=== PATIENT | female | born 1985 | race Caucasian/White ===

== ENCOUNTER 2017-05-22 11:47 | Emergency (ER) | payer BC ==
[2017-05-22 12:03] VITALS: BP 162/99
--- NOTE | 2017-05-22 12:34 | UC ---
Headache HPI - HPI Summary HPI Summary: 32 yo female has been having intermittent Headaches (3x week) for years last hours usually left hemicranial sometimes associated with n/v worse STOVALL of her life was 01/25- see did not seek care about once a month she has episodes of forgetfulness this weekend for 15-20 seconds she forgot how to use a pipette last month she forgot how to shower for a few minutes she once forgot how to read music for a few seconds for 2 yrs she has had tremors and palpitations no wt change no recent illness has never had a CT of brain has no PMD - History Of Current Complaint Chief Complaint: UCGeneralIllness Stated Complaint: HEADACHES MEMORY LOSS Time Seen by Provider: 05/22/17 11:59 Hx Obtained From: Patient Hx Last Menstrual Period: 05/10/17 Onset/Duration: Gradual Onset, Lasting Hours Onset Of Symptoms: Resolved - has not had a STOVALL for about 3 days Initially Headache Was: Moderate Currently Pain Is: Current Pain Scale(0-10)= - 0 Pain Intensity: 0 Pain Scale Used: 0-10 Numeric Timing: Intermittent, Lasting:, Hours Character: Dull Location of Headache: Frontal - L, Temporal - L Aggravating Factor: Nothing Allevating Factors: Medication - OTC Associated Signs And Symptoms: Negative: Dizziness, Seizure, Nausea, Vomiting, Sinus Pressure, Fever, Neck Pain, Neck Stiffness, Decreased LOC, Visual Changes - Allergies/Home Medications Allergies/Adverse Reactions: Allergies Allergy/AdvReac Type Severity Reaction Status Date / Time Amoxicillin Allergy Rash Verified 05/22/17 11:58 Home Medications: Home Medications FLUoxetine* [Prozac*] 40 mg PO DAILY 05/22/17 [History Confirmed 05/22/17] Levonorgestrel (Iud) [Mirena IUD] 05/22/17 [History] Sertraline* [Zoloft*] 100 mg PO BEDTIME 05/22/17 [History Confirmed 05/22/17] buPROPion TAB* [Wellbutrin TAB*] 450 mg PO DAILY 05/22/17 [History Confirmed 07/28] lamoTRIgine TAB(*) [Lamictal TAB(*)] 200 mg PO BEDTIME 05/22/17 [History Confirmed 05/22/17] PMH/Surg Hx/FS Hx/Imm Hx Previously Healthy: Yes - Surgical History Surgical History: None - Family History Known Family History: Positive: Other - MOM ? Headaches - Social History Alcohol Use: Occasionally Substance Use Type: None Smoking Status (MU): Current Every Day Smoker Type: eCigteddyttsusannah Review of Systems Constitutional: Fatigue - chronic Skin: Negative Eyes: Negative ENT: Negative Respiratory: Negative Cardiovascular: Palpitations - none at present Gastrointestinal: Negative Genitourinary: Negative Motor: Negative Neurovascular: Negative Musculoskeletal: Negative Neurological: Headache - none at present Psychological: Negative Is Patient Immunocompromised?: No All Other Systems Reviewed And Are Negative: Yes Physical Exam Triage Information Reviewed: Yes Appearance: Well-Appearing, No Pain Distress, Well-Nourished Vital Signs: Initial Vital Signs Temp 97.8 F 05/22/17 11:59 Pulse 108 05/22/17 11:59 Resp 22 05/22/17 11:59 BP 162/99 05/22/17 11:59 Pulse Ox 99 05/22/17 11:59 Vital Signs Reviewed: Yes Eyes: Positive: Conjunctiva Clear, Other: - eomi/perrl, fundi-benign ENT: Positive: Hearing grossly normal, Pharynx normal, TMs normal. Negative: Nasal congestion, Nasal drainage, Tonsillar swelling, Tonsillar exudate, Trismus , Muffled/hoarse voice Neck: Positive: Supple, Nontender Respiratory: Positive: Lungs clear, Normal breath sounds, No respiratory distress Cardiovascular: Positive: RRR, No Murmur, Tachycardia Abdomen Description: Positive: Nontender, No Organomegaly. Negative: Distended , Guarding Bowel Sounds: Positive: Present Musculoskeletal: Positive: Strength Intact, ROM Intact, No Edema Neurological: Positive: Alert, Muscle Tone Normal, Other: - cn 2-12 intact/ strenght 5/5, normal gait , DTRs symmetrical, tremors of both hands Psychological Exam: Normal Skin Exam: Normal Diagnostics - Radiology No standard instances Xray Interpretation: No Acute Changes Radiology Interpretation Completed By: Radiologist - CT Brain Headache Course/Dx - Differential Dx/Diagnosis Provider Diagnoses: headaches/forgetfulness/tremors. elevated blood pressure/ tachycardia. anxiety Discharge - Discharge Plan Condition: Stable Disposition: HOME Patient Education Materials: Fatigue (ED), General Headache (ED), Tremors (ED) Referrals: [facility] [place] [facility] REFERRAL [Outside] (call to find a local MD your pulse and blood pressure were elevated) Hali Pitts MD [Medical Doctor] - As Soon As Possible (call and set up an appt for evaluation of headaches/forgetfulness and tremors) Additional Instructions: CT normal I reviewed your neck films from January and saw nothing worrisome blood work pending
--- NOTE | 2017-05-22 13:00 | RAD ---
Indication: Headaches and forgetfulness. CT brain was performed without IV contrast. No prior study is available for comparison. Ventricular structures are midline. No midline shift is noted. The extra-axial spaces are unremarkable. There is no evidence of intracranial mass or hemorrhage. No other high or low density lesions are identified. Mastoid air cells and paranasal sinuses are unremarkable. IMPRESSION: No intracranial mass or hemorrhage.
[2017-05-22 16:12] LABS: Hematocrit 36 % (35-47); Hemoglobin 12.5 g/dl (12.0-16.0); Mean Corpuscular HGB Conc 34 g/dl (31-36); Mean Corpuscular Hemoglobin 32 pg (27-31); Mean Corpuscular Volume 93 fL (80-97); Mean Platelet Volume 9 um3 (7.4-10.4); Red Cell Distribution Width 13 % (10.5-15); White Blood Count 7.6 10^3/ul (3.5-10.8)
[2017-05-22 16:40] LABS: TSH (Thyroid Stimulating Horm) 0.66 mcIU/mL (0.34-5.60)
[2017-05-22 16:53] LABS: Albumin 4.3 g/dL (3.2-5.2); BUN/Creatinine Ratio 10.5 (8-20); Calcium 9.4 mg/dL (8.6-10.3); EGFR African American 97.1 (>60); EGFR Non-African American 75.5 (>60); Globulin 2.6 g/dL (2-4); Potassium 4.3 mmol/L (3.5-5.0); Total Bilirubin 0.4 mg/dL (0.2-1.0); Total Protein 6.9 g/dL (6.4-8.9)
== END 2017-05-22 13:23 | disposition home or self-care (01) ==
LOC: UCEAST 11:47
DX: R51 Headache (principal); R41.3 Other amnesia; R25.1 Tremor, unspecified; R03.0 Elevated blood-pressure reading, without diagnosis of hypertension; R00.0 Tachycardia, unspecified; F41.9 Anxiety disorder, unspecified
CPT/HCPCS: 36415; 70450; 80053; 84443; 85025; 99211; G0463